=== PATIENT | female | born 1945 | race African-American/Black ===

== ENCOUNTER 2017-05-29 08:24 | Inpatient (IN) | payer OTHER ==
[2017-05-20 13:50] VITALS: BMI 35.3
[2017-05-29] MEDS ORDERED: PROPOFOL 20 ML ONE ×4 (11:48→15:03)
[2017-05-29] MEDS ORDERED: MIDAZOLAM HCL 2 MG/2 ML SINGLE DOSE VIAL ONE ×2 (11:51)
[2017-05-29] MEDS ORDERED: VANCOMYCIN 1,000 MG VIAL (RESTRICTED TO ID ONLY) ONE ×2 (11:59→13:33)
[2017-05-29] MEDS ORDERED: SODIUM CHLORIDE 0.9% P/F 10 ML VIAL IJ ONE (11:59)
[2017-05-29] MEDS ORDERED: CEFAZOLIN 2 GM in DEXTROSE 5%-WATER - 50 ML IVPB ONE (12:00)
[2017-05-29] MEDS ORDERED: ROPIVICAINE 0.2%/MORPH PF/KETOROLAC - 51ML DISP.SYRINGE IA ONE (12:00)
[2017-05-29] MEDS ORDERED: VANCOMYCIN 1,250 MG in DEXTROSE 5%-WATER - 250 ML IVPB ONE (12:00)
[2017-05-29] MEDS ORDERED: TRANEXAMIC ACID 1000 MG/10 ML VIAL IVPUSH ONE (12:00)
[2017-05-29] MEDS ORDERED: oxyCODONE HCL 5 MG TABLET PO PRN (12:57)
--- NOTE | 2017-05-29 12:59 | HP ---
History & Physical Update - History History: No Change - Physical Physical: No Change - Assessment Assessment: No Change - Plan Plan: No Change (no interval changed since visit with Garrison AARON on 04/30/17. Patient cleared by cardiology for planned Left total hip replacement.)
[2017-05-29] MEDS ORDERED: ePHEDrine SULFATE 50 MG/1 ML AMPULE ONE ×2 (13:51→14:23)
[2017-05-29] MEDS ORDERED: ceFAZolin SODIUM 1 GM VIAL ONE (14:04)
[2017-05-29] MEDS ORDERED: PHENYLEPHRINE HCL 10 MG/1 ML SINGLE DOSE VIAL ONE ×2 (14:26→15:27)
[2017-05-29] MEDS ORDERED: MAGNESIUM HYDROX 2400MG/30ML ORAL SUSPENSION 30 ML CUP PO PRN (16:24)
[2017-05-29] MEDS ORDERED: ONDANSETRON 4 MG/2 ML VIAL IVPUSH PRN (16:24)
[2017-05-29] MEDS ORDERED: BENZOIN/ALOE VERA/STORAX/TOLU 58 ML BOTTLE ONE (16:27)
[2017-05-29] MEDS ORDERED: LACTATED RINGERS SOLUTION 1,000 ML IV SCH (16:30)
[2017-05-29] MEDS ORDERED: ALBUTEROL SO4 18 GM HFA INHALER IH PRN (16:31)
--- NOTE | 2017-05-29 16:36 | OP ---
Operative Note - Note: Operative Date: 05/29/17 Pre-Operative Diagnosis: left hip OA Operation: left NATALIE Post-Operative Diagnosis: Same as Pre-op Surgeon: Gilberto Myers Service Dismantler: Maxim Myers (co surgeon) Anesthesiologist/ORDER PROCESSOR: Eldon Mckeon Anesthesia: Spinal, Local Specimens Removed: left femoral head Estimated Blood Loss (mls): 100 Fluid Volume Replaced (mls): 1,500 Operative Report Dictated: Yes
--- NOTE | 2017-05-29 16:38 | SURG ---
Surgery Obstetrics And Gynecology Professor Note Obstetrics And Gynecology Professor: Nicky Boswell PA-C Date of Service: 05/29/17 Diagnosis: left hip OA Procedure: left NATALIE I was present for the entirety of the operative procedure. For further detail, please refer to operative report. Visit type - Case Type Case Type: Scheduled Admission - Emergency Emergency Visit: No - New patient This patient is new to me today: Yes Date on this admission: 05/29/17
--- NOTE | 2017-05-29 16:41 | PN ---
Progress Note (short form) - Note Progress Note: 71 yo female s/p L NATALIE POD #0. -Pain control. -DVT PPx: - Mechanical: SCD's, GABRIEL's. - Chemical: ASA 81mg PO BID x 6 weeks. -Incentive spirometry. -PT/OT/Rehab, OOB. -WBAT LLE. -f/u AM labs. -f/u TOV. -Care per medical hospitalist team. -Discharge planning. -Will follow. Problem List - Problems (1) Osteoarthritis Assessment/Plan: s/p Left Total hip arthroplasty Code(s): M19.90 - UNSPECIFIED OSTEOARTHRITIS, UNSPECIFIED SITE
[2017-05-29] MEDS: ACETAMINOPHEN 325 MG TABLET (FP) PO SCH ×3 (17:02→18:36)
[2017-05-29] MEDS: oxyCODONE HCL 10 MG SUSTAINED ACTING TABLET PO SCH ×2 (17:02→18:28)
[2017-05-29] MEDS ORDERED: oxyCODONE HCL 10 MG SUSTAINED ACTING TABLET ONE (17:02)
[2017-05-29] MEDS: LACTATED RINGERS SOLUTION 1,000 ML IV SCH (17:49)
[2017-05-29] MEDS: ONDANSETRON 4 MG/2 ML VIAL IVPUSH PRN (20:49)
[2017-05-29] MEDS: ASPIRIN 325 MG TABLET PO SCH (21:30)
[2017-05-29] MEDS: HYDROXYCHLOROQUINE SO4 200 MG TABLET (FP) PO SCH (21:30)
[2017-05-29] MEDS: LOSARTAN POTASSIUM 25 MG TABLET PO SCH (21:31)
[2017-05-29] MEDS: HYDROCHLOROTHIAZIDE 12.5 MG CAPSULE (FP) PO SCH (21:31)
[2017-05-29] MEDS: CEFAZOLIN 1 GM/D5W 1 GM/50 ML BAG IVPB SCH (21:32)
[2017-05-29] MEDS: SENNOSIDES/DOCUSATE COMBO (SENNA PLUS) TABLET (UD) PO SCH (21:32)
[2017-05-29] MEDS: ROSUVASTATIN CA 20 MG TABLET (FP) PO SCH (21:32)
[2017-05-29] MEDS ORDERED: CEFAZOLIN 1 GM/D5W 50 ML IVPB SCH (23:55)
[2017-05-30] MEDS ORDERED: ACETAMINOPHEN 1000 MG/100 ML VIAL (NON FORMULARY) IVPB ONE (00:11)
[2017-05-30] MEDS ORDERED: KETOROLAC TROMETHAMINE 30 MG/1 ML VIAL IVPUSH ONE (00:12)
[2017-05-30] MEDS: ACETAMINOPHEN 325 MG TABLET (FP) PO SCH ×4 (00:36→20:00)
[2017-05-30] MEDS ORDERED: VANCOMYCIN 1,000 MG in DEXTROSE 5%-WATER - 250 ML IVPB ONE (01:00)
[2017-05-30] MEDS: oxyCODONE HCL 10 MG SUSTAINED ACTING TABLET PO SCH ×2 (05:54→17:58)
[2017-05-30] MEDS: CEFAZOLIN 1 GM/D5W 1 GM/50 ML BAG IVPB SCH (05:54)
[2017-05-30 08:51] LABS: HEMATOCRIT 34.5 % (32.4-45.2); HEMOGLOBIN 12.3 GM/dl (10.7-15.3); MCH 32.4 pg (25.7-33.7); MCHC 35.6 g/dl (32.0-36.0); MEAN CELL VOLUME 91.2 fl (80-96); MEAN PLT VOLUME 8.7 fl (7.5-11.1); PLATELET COUNT 193 K/MM3 (134-434); RBC 3.78 M/mm3 (3.60-5.2); RDW 12.8 % (11.6-15.6); WHITE BLOOD COUNT 9.8 K/mm3 (4.0-10.8)
[2017-05-30 08:58] LABS: ANION GAP 8 (8-16); BLOOD UREA NITROGEN 11 mg/dl (7-18); CALCIUM 9.3 mg/dl (8.4-10.2); CHLORIDE 100 mmol/L (98-107); CO2 28 mmol/L (22-28); CREATININE 0.6 mg/dl (0.6-1.3); GLUCOSE,RANDOM 131 mg/dl (74-106); POTASSIUM 3.8 mmol/L (3.5-5.1); SODIUM 136 mmol/L (136-145)
[2017-05-30] MEDS ORDERED: PANTOPRAZOLE 40 MG TABLET (FP) PO SCH (10:00)
[2017-05-30] MEDS: ASPIRIN 325 MG TABLET PO SCH (10:31)
[2017-05-30] MEDS: ASPIRIN 81 MG CHEWABLE TABLETS PO SCH ×2 (10:31→21:35)
[2017-05-30] MEDS: FOLIC ACID 1 MG TABLET (FP) PO SCH (10:31)
[2017-05-30] MEDS: SENNOSIDES/DOCUSATE COMBO (SENNA PLUS) TABLET (UD) PO SCH ×2 (10:31→21:36)
[2017-05-30] MEDS: HYDROXYCHLOROQUINE SO4 200 MG TABLET (FP) PO SCH ×2 (10:35→21:35)
--- NOTE | 2017-05-30 12:50 | PN ---
Progress Note (short form) - Note Progress Note: 71F POD1 s/o L THR under spinal anesthetic with peripheral nerve blocks for post operative pain relief. Pt states that pain is well controlled, reports some nausea from pain meds that has improved. AVSS. Sensory and motor function intact in bilateral lower extremities. Continue current regimen.
[2017-05-30] MEDS: LACTATED RINGERS SOLUTION 1,000 ML IV SCH (13:19)
--- NOTE | 2017-05-30 13:38 | CONSULT ---
Consultation: REQUESTING PROVIDER: Dr Myers CONSULT REQUEST: We have been asked to medically evaluate this patient for medical management. HISTORY OF PRESENT ILLNESS: Patient is 71 y/o female with a past medical history of htn, RA, patient is s/p left THR, pod #1 REVIEW OF SYSTEMS: CONSTITUTIONAL: Absent: fever, chills, diaphoresis, generalized weakness, malaise, loss of appetite, weight change HEENT: Absent: rhinorrhea, nasal congestion, throat pain, throat swelling, difficulty swallowing, mouth swelling, ear pain, eye pain, visual changes CARDIOVASCULAR: Absent: chest pain, syncope, palpitations, irregular heart rate, lightheadedness , peripheral edema RESPIRATORY: Absent: cough, shortness of breath, dyspnea with exertion, orthopnea, wheezing, stridor, hemoptysis GASTROINTESTINAL: Absent: abdominal pain, abdominal distension, nausea, vomiting, diarrhea, constipation, melena, hematochezia GENITOURINARY: Absent: dysuria, frequency, urgency, hesitancy, hematuria, flank pain, genital pain MUSCULOSKELETAL: present: left hip pain Absent: myalgia, arthralgia, joint swelling, back pain, neck pain SKIN: Absent: rash, itching, pallor HEMATOLOGIC/IMMUNOLOGIC: Absent: easy bleeding, easy bruising, lymphadenopathy, frequent infections ENDOCRINE: Absent: unexplained weight gain, unexplained weight loss, heat intolerance, cold intolerance NEUROLOGIC: Absent: headache, focal weakness or paresthesias, dizziness, unsteady gait, seizure, mental status changes, bladder or bowel incontinence PSYCHIATRIC: Absent: anxiety, depression, suicidal or homicidal ideation, hallucinations. PHYSICAL EXAMINATION Vital Signs - 24 hr 05/29/17 05/29/17 05/29/17 16:50 16:55 17:00 Temperature 97.6 F Pulse Rate 102 H 100 H 98 H Respiratory 18 13 18 Rate Blood Pressure 91/54 92/54 95/55 O2 Sat by Pulse 99 100 100 Oximetry (%) 05/29/17 05/29/17 05/29/17 17:05 17:20 17:35 Temperature Pulse Rate 99 H 104 H 95 H Respiratory 11 L 13 14 Rate Blood Pressure 95/54 993/51 97/51 O2 Sat by Pulse 100 100 100 Oximetry (%) 05/29/17 05/29/17 05/29/17 17:50 18:14 19:49 Temperature 97.6 F 97.6 F Pulse Rate 95 H 59 L Respiratory 14 16 16 Rate Blood Pressure 97/51 110/59 O2 Sat by Pulse 100 100 Oximetry (%) 05/29/17 05/30/17 21:00 06:35 Temperature 97.4 F L 97.4 F L Pulse Rate 100 H 84 Respiratory 18 18 Rate Blood Pressure 114/55 100/51 O2 Sat by Pulse 100 100 Oximetry (%) GENERAL: Awake, alert, and fully oriented, in no acute distress. HEAD: Normal with no signs of trauma. EYES: Pupils equal, round and reactive to light, extraocular movements intact, sclera anicteric, conjunctiva clear. No lid lag. EARS, NOSE, THROAT: Ears normal, nares patent, oropharynx clear without exudates. Moist mucous membranes. NECK: Normal range of motion, supple without lymphadenopathy, JVD, or masses. LUNGS: Breath sounds equal, clear to auscultation bilaterally. No wheezes, and no crackles. No accessory muscle use. HEART: Regular rate and rhythm, normal S1 and S2 without murmur, rub or gallop. ABDOMEN: Soft, nontender, not distended, normoactive bowel sounds, no guarding, no rebound, no masses. No hepatomegaly or splenomegaly. MUSCULOSKELETAL: Normal range of motion at all joints. No bony deformities or tenderness. No CVA tenderness. UPPER EXTREMITIES: 2+ pulses, warm, well-perfused. No cyanosis. No clubbing. Cap refill <2 seconds. No peripheral edema. LOWER EXTREMITIES: 2+ pulses, warm, well-perfused. No calf tenderness. No peripheral edema. dressing to left lateral hip CDI NEUROLOGICAL: Cranial nerves II-XII intact. Normal speech. Normal gait. PSYCHIATRIC: Cooperative. Good eye contact. Appropriate mood and affect. SKIN: Warm, dry, normal turgor, no rashes or lesions noted. Laboratory Results - last 24 hr 05/30/17 05/30/17 07:15 07:15 WBC 9.8 RBC 3.78 Hgb 12.3 Hct 34.5 MCV 91.2 MCH 32.4 MCHC 35.6 RDW 12.8 Plt Count 193 MPV 8.7 Sodium 136 Potassium 3.8 Chloride 100 Carbon Dioxide 28 Anion Gap 8 BUN 11 Creatinine 0.6 Random Glucose 131 H Calcium 9.3 Active Medications Generic Name Dose Route Start Last Admin Trade Name Freq PRN Reason Stop Dose Admin Acetaminophen 650 mg 05/29/17 13:00 05/30/17 13:18 Tylenol - PO 06/01/17 12:59 650 mg Q6H SATHYA Administration Albuterol Sulfate 2 puff 05/29/17 16:31 Ventolin Hfa Inhaler - IH Q6H PRN ASTHMA Aspirin 81 mg 05/30/17 10:30 05/30/17 10:31 Asa - PO 81 mg BID [facility] Administration Fentanyl 25 mcg 05/29/17 12:57 Sublimaze Injection - IVPUSH [id number] PRN PAIN-PACU ORDER X 4 DOSES ONLY Folic Acid 1 mg 05/30/17 10:00 05/30/17 10:31 Folic Acid - PO 1 mg DAILY [facility] Administration Hydrochlorothiazide 12.5 mg 05/29/17 22:00 05/29/17 21:31 Hctz - PO 12.5 mg HS [facility] Administration Hydroxychloroquine Sulfate 200 mg 05/29/17 22:00 05/30/17 10:35 Plaquenil - PO Not Given BID [facility] Lactated Ringer's 1,000 mls @ 75 mls/hr 05/29/17 13:00 05/30/17 13:19 Lactated Ringers Solution IV Not Given ASDIR [facility] Losartan Potassium 25 mg 05/29/17 22:00 05/29/17 21:31 Cozaar - PO 25 mg HS [facility] Administration Magnesium Hydroxide 30 ml 05/29/17 16:24 Milk Of Magnesia - PO PRN PRN CONSTIPATION Ondansetron HCl 4 mg 05/29/17 12:57 05/29/17 20:49 Zofran Injection IVPUSH 4 mg Q6H PRN Administration NAUSEA AND/OR VOMITING Ondansetron HCl 4 mg 05/29/17 16:24 Zofran Injection IVPUSH Q6H PRN NAUSEA Oxycodone HCl 5 mg 05/29/17 12:57 Roxicodone - PO Q4H PRN PAIN LEVEL 1-5 Oxycodone HCl 10 mg 05/29/17 12:57 05/29/17 20:26 Roxicodone - PO 10 mg Q4H PRN Administration PAIN LEVEL 6-10 Oxycodone HCl 10 mg 05/29/17 17:00 05/30/17 05:54 Oxycontin - PO 10 mg Q12H SATHYA Administration Pantoprazole Sodium 40 mg 05/30/17 10:00 05/30/17 10:31 Protonix - PO 40 mg DAILY SATHYA Administration Rosuvastatin Calcium 20 mg 05/29/17 22:00 05/29/17 21:32 Crestor - PO 20 mg HS SATHYA Administration Senna/Docusate Sodium 1 tablet 05/29/17 22:00 05/30/17 10:31 Pericolace - PO 1 tablet BID SATHYA Administration ASSESSMENT/PLAN: 1) MS left total hip replacment, POD #1 - prn pain medication - physical therapy as per the orthopedist - close monitoring of hgb 2) cardiovascular htn - continue losartan 3) ra - continue plaquenil Dispo: We will continue to follow the patient. Thank you for this consultative opportunity. Visit type - Emergency Visit Emergency Visit: No - New Patient This patient is new to me today: No - Critical Care Critical Care patient: No
[2017-05-30] MEDS ORDERED: traMADol HCL 50 MG TABLET PO PRN (13:48)
[2017-05-30] MEDS: FAMOTIDINE 20 MG TABLET PO SCH ×2 (14:59→21:36)
[2017-05-30] MEDS: oxyCODONE HCL 5 MG TABLET PO PRN ×2 (15:00→21:35)
[2017-05-30] MEDS: ONDANSETRON 4 MG/2 ML VIAL IVPUSH PRN (15:00)
[2017-05-30] MEDS: ROSUVASTATIN CA 20 MG TABLET (FP) PO SCH (21:35)
[2017-05-30] MEDS: LOSARTAN POTASSIUM 25 MG TABLET PO SCH (21:36)
[2017-05-30] MEDS: HYDROCHLOROTHIAZIDE 12.5 MG CAPSULE (FP) PO SCH (21:36)
--- NOTE | 2017-05-30 23:40 | PN ---
Progress Note (short form) - Note Progress Note: 71F doing well s/p L NATALIE via direct superior approach POD #1. Pain well controlled. No acute events overnight. (+) Intermittent nausea. Pt. denies overnight history of chest pain, shortness of breath, vomiting, chills, & sweats. (+) Voiding; (+) Flatus; (-) BM. All labs and vitals reviewed. PE: AAO x 3, NAD. L Hip: Dressing C/D/I. NVI distally. A/P: 71F doing well s/p L NATALIE via direct superior approach POD #1. -Pain control. -DVT PPx: - Mechanical: SCD's, GABRIEL's. - Chemical: ASA 81mg PO BID x 6 weeks. -Incentive spirometry. -PT/OT/Rehab, OOB. -WBAT RLE. -f/u AM labs. -Care per medical hospitalist team. -Discharge planning. -Will follow. Gilberto Myers MD (Orthopaedic Surgery).
[2017-05-31] MEDS: ACETAMINOPHEN 325 MG TABLET (FP) PO SCH ×3 (02:20→12:48)
[2017-05-31] MEDS: oxyCODONE HCL 10 MG SUSTAINED ACTING TABLET PO SCH (05:20)
[2017-05-31 06:23] VITALS: BP 112/52; PULSE 97; TEMP 98.3
[2017-05-31] MEDS: oxyCODONE HCL 5 MG TABLET PO PRN (09:14)
[2017-05-31 09:17] LABS: HEMATOCRIT 33.3 % (32.4-45.2); HEMOGLOBIN 11.4 GM/dl (10.7-15.3); MCH 31.3 pg (25.7-33.7); MCHC 34.1 g/dl (32.0-36.0); MEAN CELL VOLUME 91.8 fl (80-96); MEAN PLT VOLUME 8.6 fl (7.5-11.1); PLATELET COUNT 188 K/MM3 (134-434); RBC 3.63 M/mm3 (3.60-5.2); RDW 13.1 % (11.6-15.6); WHITE BLOOD COUNT 8.6 K/mm3 (4.0-10.8)
[2017-05-31] MEDS: FAMOTIDINE 20 MG TABLET PO SCH (09:58)
[2017-05-31] MEDS: ASPIRIN 81 MG CHEWABLE TABLETS PO SCH (09:58)
[2017-05-31] MEDS: SENNOSIDES/DOCUSATE COMBO (SENNA PLUS) TABLET (UD) PO SCH (09:58)
[2017-05-31] MEDS: FOLIC ACID 1 MG TABLET (FP) PO SCH (09:59)
[2017-05-31] MEDS: HYDROXYCHLOROQUINE SO4 200 MG TABLET (FP) PO SCH (10:00)
[2017-05-31] MEDS: LACTATED RINGERS SOLUTION 1,000 ML IV SCH (12:49)
--- NOTE | 2017-05-31 13:43 | DS ---
Physical Exam: SUBJECTIVE: Patient seen and examined, reports feeling well, tolerating meals, denies any nausea or vomiting, ambulatory at bedside, reports minimal pain OBJECTIVE: Patient is 71 y/o female with a past medical history of htn, RA, patient is s/p left THR. post operative day 2 Vital Signs Temperature 98.3 F 05/31/17 06:00 Pulse Rate 97 H 05/31/17 06:00 Respiratory Rate 20 05/31/17 06:00 Blood Pressure 112/52 05/31/17 06:00 O2 Sat by Pulse Oximetry (%) 99 05/31/17 06:00 PHYSICAL EXAM GENERAL: The patient is awake, alert, and fully oriented, in no acute distress. HEAD: Normal with no signs of trauma. EYES: PERRL, extraocular movements intact, sclera anicteric, conjunctiva clear. ENT: Ears normal, nares patent, oropharynx clear without exudates, moist mucous membranes. NECK: Trachea midline, full range of motion, supple. LUNGS: Breath sounds equal, clear to auscultation bilaterally, no wheezes, no crackles, no accessory muscle use. HEART: Regular rate and rhythm, S1, S2 without murmur, rub or gallop. ABDOMEN: Soft, nontender, nondistended, normoactive bowel sounds, no guarding, no rebound, no hepatosplenomegaly, no masses. EXTREMITIES: 2+ pulses, warm, well-perfused, no edema. LEFT LOWER EXTREMITY: dressing cdi, less than 3 second capillary refill, +3 pedal pulse NEUROLOGICAL: Cranial nerves II through XII grossly intact. Normal speech, gait not observed. PSYCH: Normal mood, normal affect. SKIN: Warm, dry, normal turgor, no rashes or lesions noted. LABS CBC,CMP WBC 8.6 K/mm3 (4.0-10.8) 05/31/17 07:10 RBC 3.63 M/mm3 (3.60-5.2) 05/31/17 07:10 Hgb 11.4 GM/dl (10.7-15.3) 05/31/17 07:10 Hct 33.3 % (32.4-45.2) 05/31/17 07:10 MCV 91.8 fl (80-96) 05/31/17 07:10 MCH 31.3 pg (25.7-33.7) 05/31/17 07:10 MCHC 34.1 g/dl (32.0-36.0) 05/31/17 07:10 RDW 13.1 % (11.6-15.6) 05/31/17 07:10 Plt Count 188 K/MM3 (134-434) 05/31/17 07:10 MPV 8.6 fl (7.5-11.1) 05/31/17 07:10 Sodium 136 mmol/L (136-145) 05/30/17 07:15 Potassium 3.8 mmol/L (3.5-5.1) 05/30/17 07:15 Chloride 100 mmol/L (98-107) 05/30/17 07:15 Carbon Dioxide 28 mmol/L (22-28) 05/30/17 07:15 Anion Gap 8 (8-16) 05/30/17 07:15 BUN 11 mg/dl (7-18) 05/30/17 07:15 Creatinine 0.6 mg/dl (0.6-1.3) 05/30/17 07:15 Random Glucose 131 mg/dl (74-106) H 05/30/17 07:15 Calcium 9.3 mg/dl (8.4-10.2) 05/30/17 07:15 HOSPITAL COURSE: The patient was admitted to the Med-Surg Unit after an elective left THR, Dr Myers. On post operative day 1, the patient ambulated the hallways with assistance. Narcotic and non-narcotic pain management control was achieved with an oral and IV approach. osmar-operative IV ABX were administered. DVT prophylaxis was achieved with SCDs and early ambulation. The patient ambulated with Physical Therapy and no services were recommended upon discharge. Narcotic scripts were checked with [facility]INE SERVICE REPAIRER prior to escibe. The discharge instructions and an oral pain management plan were reviewed with the patient. All questions answered. Above plan discussed with Dr. Myers and agreed. Date of Admission:05/29/17 Date of Discharge: 05/31/17 Minutes to complete discharge: 45 Visit type - Case Type Case Type: Scheduled Admission - Emergency Emergency Visit: No - New patient This patient is new to me today: No - Critical Care Critical Care patient: No
--- NOTE | 2017-06-03 00:47 | OP ---
Surgeon: Gilberto Myers MD Co-Surgeon: Maxim Myers MD Industrial Relations Analyst: Nicky Boswell PA-C Pre-Operative Diagnosis: Left hip DJD Post-Operative Diagnosis: Same Surgical Procedure: Left NATALIE Anaesthesia: Direct Superior Position: Right lateral decubitus Incision: Direct superior Estimated Blood Loss: 100 Intravenous Fluid: 1.5L crystalloid Specimens: Left femoral head Drains: None Complications: None Urine output: None Bacteriology: None Transfusions: None Closure: #1 & 2-0 Vicryl; 3-0 Biosyn Indications: The patient was indicated for a left total hip replacement in order to facilitate improved motion and mobilization, and to prevent the complications associated with a sedentary lifestyle. The patient was identified in the holding area by her armband. A long discussion was held with the patient in the presence of the patients relative regarding the risks, benefits and alternatives of the above named procedure. Risks include but are not limited to: pain, bleeding, infection, damage to surrounding structures (including nerves, blood vessels, skin, ligaments, tendons and bone), wound complications, failure of hardware/implants/reduction, need for further surgery, blood clots, myocardial infarction, pulmonary embolism , cerebrovascular insult, anaesthesia complications, compartment syndrome, limb loss, limp, loss of function, and . Benefits as mentioned above. Alternatives include no surgery. All questions were answered. The patient understood and agreed to the procedure. Informed consent was obtained, witnessed and verified. The patients correct operative limb that is the left lower extremity was marked, and the patient was taken to the operating room after being seen by the anesthesia and nursing staff. Procedure: The patient was brought into the operating room, placed on the OR table and secured with a safety strap. Consent and the operative site were again verified with the patient and nursing and anaesthesia staff. Anaesthesia, IV antibiotics, and TXA were then administered without complication. A time out was done, led by me the attending surgeon. The patient was gently turned into the right lateral decubitus position. An axillary roll was placed. A Stulberg hip positioner with well-padded bolsters was used to secure the patient in the lateral decubitus position. The down arm was placed on a well-padded arm board. The up arm was brought across the patients body and placed on 2 pillows. Egg crates were placed under the down knee and ankle, and bony prominences were well padded. The operative site was then prepped and draped in the standard sterile fashion. Time out was again done and the case began. Operation: A standard Direct Superior surgical approach was utilized to access the hip joint. With a #10 blade, a skin incision was taken from the posterior-superior corner of the greater trochanter in a posterior-superior direction. This was approximately 10cm in length. Electrocautery was utilized to carry the deep dissection down to the level of the gluteus marleny fascia. Hemostasis was assured using electrocautery (bipolar and unipolar). The gluteus marleny fascia was incised, and the fibers of gluteus marleny were in line with the trajectory of the incision. This confirmed the accuracy of our planned incision based on palpated landmarks and surface anatomy. A Monroe elevator was used to split the distal fibers of gluteus marleny, in line with the fibers, just proximal to their insertion into the iliotibial band. Great care was taken not to incise the iliotibial band. Gluteus marleny fibers were split proximally using the Monroe elevator until reaching the apex of the wound. Again, hemostasis was assured. The osmar-capsular fat pad was exposed utilizing curved handle bar retractors. The osmar-capsular fat pad was excised off the inferior border of the gluteus medius muscle belly, exposing the insertion of the hip short external rotator muscle group. The piriformis tendon was identified and freed from adhesions to the capsule using a 90-degree clamp. This tendon was then released from its insertion using electrocautery. The tendon was tagged with a # 1 Ethibond suture and tied to the inferior aspect of the proximal wound apex. The tendon, thus, served as a sling to retract and protect the sciatic nerve. With the piriformis tendon reflected away from its insertion, the hip joint capsule was visualized. Electrocautery was used to perform a capsulotomy and synovial joint fluid was aspirated. Next, the superior leaflet of the capsule was elevated using a Monroe elevator to create separation from the underlying labrum and also to create a plane for later placement of a supra-acetabular retractor. The labrum was excised using electrocautery. The hip was then gently dislocated. A standard femoral neck cut was made using an oscillating saw. A 3/4 " osteotome was delivered into the femoral head using mallet strikes. The femoral head was then removed. Anterior, inferior, and supra-acetabular retractors were placed to expose the acetabulum. The pulvinar was excised using electrocautery. Odd sized reamers were used to prepare the acetabular bone bed. Healthy blushes of bleeding were observed from the reamed cancellous bone bed. Next, a size 52mm [place] Trident cup was impacted into position, achieving excellent press-fit. A size 36mm neutral polyethylene liner was then impacted into the cup. Excellent placement of the polyethylene liner, and excellent press fit of the cup were confirmed. Next, attention was turned to femoral preparation. The anterior and supra-acetabular retractors were removed. The cut femoral neck was then exposed using the inferior acetabular retractor around the calcar, and a straight 90-degree retractor to retract gluteus medius. The box-cutter osteotome was used with a mallet to removed bone from the lateral femoral neck. An opening reamer was delivered by hand to find the femoral canal. A lateralizing reamer was used with power to lateralize the proximal entry into the canal, so as to avoid placing the stem into varus. The femoral bone bed was then prepared using broaches with gentle mallet strikes. The tibia was used as a goniometer with which to dial in approximately 5 degrees of stem anteversion. Trial components were assembled and the hip was reduced. The hip was taken through a full range of motion and proved stable throughout this range of motion, including at the extremes of positions of compromised. All trial femoral components were removed. Another 1g of IV Ancef was administered so that the bone bed would be rich with antibiotic at the time of seating of the femoral implant. A [place] Accolade II (127-degree NSA, high offset) #6 stem was then implanted using gentle mallet strikes, diligently matching the prepared degree of stem anteversion. With the stem fully seated, a 36mm ceramic/ Biolox femoral head was then selected and implanted. The hip was once again reduced, and taken through a full range of motion. Stability was once again assured. Leg length was satisfactory. The wounds were copiously irrigated, as they had been regularly throughout the case so as to keep the retracted tissues wet, and in order to flush out wound debris. The capsule was primarily repaired using #1 Vicryl sutures in simple interrupted fashion. The tagged piriformis tendon was released and tied to the posterior-lateral corner of the greater trochanter. The remaining wounds were again irrigated. Hemostasis was assured and the wound was closed primarily using #1 and 2-0 Vicryl sutures. A 3-0 Biosyn suture was used to perform a subcuticular wound closure. A sterile, compressive dressing was applied. The sponge and needle counts were correct at the end of the case and the attending was present and scrubbed throughout the case. The patient was then transferred into a supine position and onto the hospital bed. A standard AP-pelvis x-ray was taken, demonstrating good overall alignment with a well reduced hip. There was no evidence of subsidence, loosening, or osmar -prosthetic fracture. The patient was then was then transferred to the recovery room without incident/complications and in stable condition, having tolerated the procedure well. MD YESSENIA Pugh/[id number] MTDD
--- NOTE | 2017-06-06 08:56 | PATH ---
Surgical Pathology Report Patient Name: RAIN MINER Med. Rec. #: [id number] /Age/Gender: 1945 (Age: 71) / F Account: [id number] Location: [facility] Taken: 05/29/2017 Received: 05/30/2017 Reported: 06/06/2017 Physicians: Gilberto Myers M.D. Specimen(s) Received LEFT FEMORAL HEAD Clinical History Unilateral osteoarthritis left hip Final Diagnosis BONE AND SOFT TISSUE, LEFT FEMORAL HEAD, REPLACEMENT: AVASCULAR NECROSIS AND CHANGES CONSISTENT WITH DEGENERATIVE JOINT DISEASE. Electronically Signed All Cavazos M.D. Gross Description Received in formalin, labeled "left femoral head," is a 4.0 x 4.0 x 3.2 cm. femoral head with a 1.3 cm in length portion of femoral neck attached. The margin of resection is smooth. No areas of eburnation are identified. The articular surface is johnson-yellow and lifting away from the underlying trabecular bone. The underlying trabecular bone is yellow and focally necrotic. A admissions representative section is submitted in one cassette, following decalcification. 05/31/2017 saudi05/31/2017
== END 2017-05-31 14:16 | disposition home health service (06) | DRG 470 ==
LOC: FM/S 09:43
PROVIDERS: ADMIT Orthopaedic Surgery Orthopaedic Surgery of the Spine; ATTEND Orthopaedic Surgery Orthopaedic Surgery of the Spine
PROC: 0SRB04Z Replacement of Left Hip Joint with Ceramic on Polyethylene Synthetic Substitute, Open Approach (ICD-10-PCS; principal; 2017-05-29 14:46)
DX: M16.12 Unilateral primary osteoarthritis, left hip (principal); I10 Essential (primary) hypertension; M06.9 Rheumatoid arthritis, unspecified; E78.00 Pure hypercholesterolemia, unspecified; J45.909 Unspecified asthma, uncomplicated
CPT/HCPCS: 36415; 73523-TC-FY; 80048; 85027; 88304-TC; 88311-TC; 94760; 97116-GP; 97162-GP; J0131